=== PATIENT | female | born 1980 | race Two or more races ===

== ENCOUNTER 2019-04-07 03:24 | Emergency (ER) | payer SELFPAY ==
[~2019-04-07] VITALS: Ht 175.3 cm; Wt 86.2 kg
[2019-04-07 03:35] VITALS: BP 103/57
--- NOTE | 2019-04-07 03:49 | Emergency Room Report ---
History of Present Illness General Chief Complaint: Abdominal Pain Source: Patient Present Illness HPI Disclaimer: Please note that this report is being documented using DRAGON technology. This can lead to erroneous entry secondary to incorrect interpretation by the dictating instrument. HPI: 38-year-old G1, P0 female at 16 weeks gestation presents for evaluation of abdominal pain. Patient states she is visiting from [place]. She was in I had an argument with in-laws but denies any trauma. She states that whenever she gets emotionally distressed she experiences a sharp pain in the right lower quadrant. This is happened in her before. It happened 2 days ago after which she experienced some vaginal spotting after using the bathroom and then shortly after again. Bleeding has not recurred. She denies any leakage of fluid, vaginal discharge, dysuria, hematuria or back pain. States her so far has been uneventful. She follows regularly with her [employer] in [place] and takes vitamins. Abstains from alcohol and has no medical history aside from asthma. Pain is currently a 6/10. She does not want take any medications for it. She does want an ultrasound. Otherwise denies any chest pain, shortness of breath, fever, chills, vomiting, diarrhea or other changes in her health. PMH: Asthma PSH: Denies Allergies: Denies Social Hx: Denies Allergies: Coded Allergies: No Known Allergies (Unverified , 04/07/19) Patient History Now: Yes : 1 Nursing Documentation-PMH Hx Asthma: Yes Review of Systems All Other Systems: negative except mentioned in HPI Physical Exam Vital Signs Date Time Temp Pulse Resp B/P (MAP) Pulse Ox O2 Delivery O2 Flow Rate FiO2 04/07/19 03:28 98.1 84 16 103/57 (72) 96 Room Air General: Awake and alert, no acute distress HEENT: NC/AT. EOMI. Cardiovascular: RRR. S1 and S2 normal. No murmur appreciated Resp: Normal work of breathing. No cough, wheezing or crackles appreciated Abdomen: Gravid abdomen. Mild tenderness in the right lower quadrant without rebound. Otherwise nontender. Skin: Intact. No abrasions, laceration or rash over the exposed skin MSK: Normal tone and bulk. Moving all extremities. No obvious deformity. Neuro: Awake and alert. Mentating appropriately. Medical Decision Making Diagnostic Impression: Primary Impression: Abdominal pain during ER Course 38-year-old G1, P0 female at 16 with gestation presents for evaluation of sudden onset sharp lower quadrant abdominal pain in the setting of a argument with family. She denies any trauma. She denies any nausea, vomiting, fever, chills or changes in her health otherwise. States this is happened before but that 2 days ago this was accompanied by some light vaginal spotting. Will obtain an ultrasound, labs to evaluate both the patient's health and the health of the baby. She declined any Tylenol at this time or other medications. Laboratory Tests Test 04/07/19 03:51 White Blood Count 8.1 K/UL (4.8-10.8) Red Blood Count 4.18 M/UL (4.20-5.40) L Hemoglobin 12.8 G/DL (12.0-16.0) Hematocrit 36.9 % (37.0-47.0) L Mean Corpuscular Volume 88 FL (80-99) Mean Corpuscular Hemoglobin 30.6 PG (27.0-31.0) Mean Corpuscular Hemoglobin Concent 34.6 G/DL (32.0-36.0) Red Cell Distribution Width 11.2 % (11.6-14.8) L Platelet Count 214 K/UL (150-450) Mean Platelet Volume 8.2 FL (6.5-10.1) Neutrophils (%) (Auto) 66.7 % (45.0-75.0) Lymphocytes (%) (Auto) 22.0 % (20.0-45.0) Monocytes (%) (Auto) 8.8 % (1.0-10.0) Eosinophils (%) (Auto) 1.8 % (0.0-3.0) Basophils (%) (Auto) 0.7 % (0.0-2.0) Urine Color Pale yellow Urine Appearance Clear Urine pH 5 (4.5-8.0) Urine Specific [place] 1.025 (1.005-1.035) Urine Protein Negative (NEGATIVE) Urine Glucose (UA) Negative (NEGATIVE) Urine Ketones Negative (NEGATIVE) Urine Blood 1+ (NEGATIVE) H Urine Nitrite Negative (NEGATIVE) Urine Bilirubin Negative (NEGATIVE) Urine Urobilinogen Normal MG/DL (0.0-1.0) Urine Leukocyte Esterase Negative (NEGATIVE) Urine RBC 2-4 /HPF (0 - 2) H Urine WBC 2-4 /HPF (0 - 2) Urine Squamous Epithelial Cells Many /LPF (NONE/OCC) H Urine Bacteria Few /HPF (NONE) Sodium Level 140 MMOL/L (136-145) Potassium Level 3.9 MMOL/L (3.5-5.1) Chloride Level 106 MMOL/L (98-107) Carbon Dioxide Level 20 MMOL/L (21-32) L Anion Gap 14 mmol/L (5-15) Blood Urea Nitrogen 17 mg/dL (7-18) Creatinine 0.7 MG/DL (0.55-1.30) Estimate Glomerular Filtration Rate > 60 mL/min (>60) Glucose Level 109 MG/DL (74-106) H Calcium Level 8.8 MG/DL (8.5-10.1) Total Bilirubin 0.4 MG/DL (0.2-1.0) Aspartate Amino Transferase (AST) 23 U/L (15-37) Alanine Aminotransferase (ALT) 39 U/L (12-78) Alkaline Phosphatase 59 U/L (46-116) Total Protein 7.0 G/DL (6.4-8.2) Albumin 3.1 G/DL (3.4-5.0) L Globulin 3.9 g/dL Albumin/Globulin Ratio 0.8 (1.0-2.7) L Lipase 223 U/L (73-393) Human Chorionic Gonadotropin, Quant 55834 mIU/mL (1-6) H CT/MRI/US Diagnostic Results CT/MRI/US Diagnostic Results : Impression Final Report EXAM: US After First Trimester, Transabdominal CLINICAL HISTORY: ABD PAIN TECHNIQUE: Real-time transabdominal obstetrical ultrasound of the maternal pelvis and a second or third trimester with image documentation. COMPARISON: No relevant prior studies available. FINDINGS: Fetus: There is a single living intrauterine identified. Heart rate: heart rate 160 bpm. Presentation: Breech presentation. Placenta: Posterior placenta without previa. Amniotic fluid: Unremarkable. Anatomy: See below. BIOMETRICS Gestational age: Calculated ultrasound age 16 weeks 5 days. CECILE: Estimated date of delivery by ultrasound 09/17/19. EFW: Estimated weight 174 g. BPD: Biparietal diameter 16 weeks 4 days. HC: Head circumference 16 weeks 6 days. AC: Abdominal circumference 16 weeks 6 days. FL: Femur length 17 weeks 0 days. MATERNAL: Uterus: Unremarkable. No myometrial mass. Cervix: Cervix measures 4.5 cm in length. Free fluid: No free fluid. IMPRESSION: 1. Single living intrauterine with calculated ultrasound age of 16 weeks 5 days. 2. Estimated date of delivery by ultrasound 09/17/19. Radiologist: Trevor Le MD Electronically Signed: 04/07/19 06:14 Study ready at 05:10 and initial results transmitted at 06:14 Reevaluation Time: 06:25 Last Vital Signs Date Time Temp Pulse Resp B/P (MAP) Pulse Ox O2 Delivery O2 Flow Rate FiO2 04/07/19 03:28 98.1 84 16 103/57 (72) 96 Room Air Reevaluation Impression Labs are unremarkable. No evidence of ovarian cyst or torsion on ultrasound, no free fluid. No evidence of bleeding. Patient's symptoms are resolved. Unclear why she was having intermittent lower quadrant cramping while she gets upset emotionally but she can follow-up with her OB when she returns to [place] next week. She already has an appointment. We will continue Tylenol as needed. She is well-appearing now would like to be discharged home. Discussed reasons to return to the emergency department. She understands and agrees with this treatment plan. Copy of report was given to her in her paperwork. Disposition: HOME, SELF-CARE Condition: Stable Gaudencio Jones MD Apr 07, 2019 03:49
[2019-04-07 04:01] LABS: APPEARANCE,URINE CLEAR; BILIRUBIN, URINE NEGATIVE (NEGATIVE); COLOR,URINE PALE YELLOW; GLUCOSE, URINE (UA) NEGATIVE (NEGATIVE); KETONES,URINE NEGATIVE (NEGATIVE); LEUKOCYTE ESTERASE ,URINE NEGATIVE (NEGATIVE); NITRITE,URINE NEGATIVE (NEGATIVE); PH,URINE 5 (4.5-8.0); PROTEIN,URINE NEGATIVE (NEGATIVE); UROBILINOGEN,URINE NORMAL MG/DL (0.0-1.0)
[2019-04-07 04:04] LABS: BASOPHILS % (AUTO) 0.7 % (0.0-2.0); EOSINOPHILS % (AUTO) 1.8 % (0.0-3.0); HEMATOCRIT 36.9 % (37.0-47.0); HEMOGLOBIN 12.8 G/DL (12.0-16.0); MEAN CORPUSCULAR VOLUME 88 FL (80-99); MONOCYTES % (AUTO) 8.8 % (1.0-10.0); NEUTROPHILS % (AUTO) 66.7 % (45.0-75.0); PLATELET COUNT 214 K/UL (150-450); RED BLOOD COUNT 4.18 M/UL (4.20-5.40); RED CELL DISTRIBUTION WIDTH 11.2 % (11.6-14.8); WHITE BLOOD COUNT 8.1 K/UL (4.8-10.8)
[2019-04-07 04:24] LABS: ANION GAP 14 mmol/L (5-15); BLOOD UREA NITROGEN 17 mg/dL (7-18); CALCIUM 8.8 MG/DL (8.5-10.1); CARBON DIOXIDE 20 MMOL/L (21-32); CHLORIDE 106 MMOL/L (98-107); CREATININE 0.7 MG/DL (0.55-1.30); POTASSIUM 3.9 MMOL/L (3.5-5.1); SODIUM 140 MMOL/L (136-145)
[2019-04-07 04:30] LABS: ALANINE AMINOTRANSFERASE 39 U/L (12-78); ALBUMIN 3.1 G/DL (3.4-5.0); ALBUMIN/GLOBULIN RATIO 0.8 (1.0-2.7); ALKALINE PHOSPHATASE 59 U/L (46-116); ASPARTATE AMINO TRANSFERASE 23 U/L (15-37); BILIRUBIN,TOTAL 0.4 MG/DL (0.2-1.0)
--- NOTE | 2019-04-07 06:15 | Diagnostic Imaging Report ---
EXAM: US After First Trimester, Transabdominal CLINICAL HISTORY: ABD PAIN TECHNIQUE: Real-time transabdominal obstetrical ultrasound of the maternal pelvis and a second or third trimester with image documentation. COMPARISON: No relevant prior studies available. FINDINGS: Fetus: There is a single living intrauterine identified. Heart rate: heart rate 160 bpm. Presentation: Breech presentation. Placenta: Posterior placenta without previa. Amniotic fluid: Unremarkable. Anatomy: See below. BIOMETRICS Gestational age: Calculated ultrasound age 16 weeks 5 days. CECILE: Estimated date of delivery by ultrasound 09/17/19. EFW: Estimated weight 174 g. BPD: Biparietal diameter 16 weeks 4 days. HC: Head circumference 16 weeks 6 days. AC: Abdominal circumference 16 weeks 6 days. FL: Femur length 17 weeks 0 days. MATERNAL: Uterus: Unremarkable. No myometrial mass. Cervix: Cervix measures 4.5 cm in length. Free fluid: No free fluid. IMPRESSION: 1. Single living intrauterine with calculated ultrasound age of 16 weeks 5 days. 2. Estimated date of delivery by ultrasound 09/17/19.
[2019-04-07 06:26] VITALS: BP 110/69
== END 2019-04-07 06:26 | disposition home or self-care (01) ==
LOC: EMR 05:16
DX: R10.9 Unspecified abdominal pain (principal); O26.92 Pregnancy related conditions, unspecified, second trimester; Z3A.16 16 weeks gestation of pregnancy
CPT/HCPCS: 36415; 76805; 80053; 81003; 83690; 84702; 85025; 86850; 86900; 86901; 99284